=== PATIENT | female | born 1995 | race Asian ===

== ENCOUNTER 2016-12-24 21:23 | Emergency (ER) | payer MEDICAID ==
[~2016-12-24] VITALS: Ht 162.6 cm; Wt 78.5 kg
[2016-12-24 21:42] VITALS: BP 138/67
== END 2016-12-25 00:51 | disposition left against medical advice (07) ==
LOC: ER 21:41
DX: R21 Rash and other nonspecific skin eruption (principal); Z53.21 Procedure and treatment not carried out due to patient leaving prior to being seen by health care provider